=== PATIENT | female | born 1980 | race Two or more races ===

== ENCOUNTER 2024-09-30 12:24 | Emergency (ER) | payer OTHER, MEDICAID ==
[~2024-09-30] VITALS: Ht 170.2 cm; Wt 90.9 kg
--- NOTE | 2024-09-30 12:54 | ED.PDOC ---
Musculoskeletal HPI Comments 44y F who presents to the ED for chief complaint of lower extremity pain. Pt states she has been having LLE pain for the past 5 days. Pt denies any recent fall or injury. Pt states her pain starts by the posterior buttock region and radiates down her L leg. Pt states her pain is constant, exacerbated with movement no relieving factors. Pt has no associated symptoms and denies chest pain, shortness of breath, headache, dizziness, nausea, or vomiting. Pt states she has been taking Advil for her pain but is it has not been helping. Pt states she has MRI scheduled by PCP but states it has not been done yet. 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 Pt otherwise denies any other symptoms at this time. Chief Complaint: Lower Extremity Time Seen by MD: 12:49 Reviewed Notes: Nurses Notes, Medications, Allergies (Allergies to tramadol) Allergies: Coded Allergies: Tramadol (Verified Allergy, Unknown, 09/30/24) Home Meds Active Scripts Hydrocodone-Acetaminophen (Hydrocodone Bitartrate/AC 5-325 mg) 1 Tab Tab, 1 TAB PO Q8HP PRN for 7 Days, #21 TAB Prov:VALERIE MALAGON MD 09/30/24 Information Source: Patient Mode of Arrival: Ambulatory Brought in by: self Location: Left Extremity Location: Leg Timing: Days Prehospital treatment: None Severity: Moderate Able to Move Extremity: Yes Bear Weight: Limited Pain: Moderate Mechanism: Spontaneous Circumstances: Spontaneous Onset of Symptoms: Spontaneous Symptoms: Pain DVT Risk Factors: NONE Associated signs and symptoms: Leg pain Past Medical History PAST MEDICAL HISTORY: CHF, CVA, DM, HTN Surgical History: Denies all surgeries PROVISIONING ANALYST History: Unknown Family History Family History: Reviewed,noncontributory to illness Social History Smoker: Cigarettes Alcohol: Occasionally Drugs: Marijuana Lives In: Home Constitutional: denies: chills, diaphoresis, fatigue, fever, malaise, sweats, weakness, others EENTM: denies: blurred vision, double vision, ear bleeding, ear discharge, ear drainage, ear pain, ear ringing, eye pain, eye redness, hearing loss, mouth pain, mouth swelling, nasal discharge, nose bleeding, nose congestion, nose pain, photophobia, tearing, throat pain, throat swelling, voice changes, others Respiratory: denies: cough, hemoptysis, orthopnea, SOB at rest, shortness of breath, SOB with excertion, stridor, wheezing, others Cardiovascular: denies: chest pain, dizzy spells, diaphoresis, Dyspnea on exertion, edema, irregular heart beat, left arm pain, lightheadedness, palpi tations, PND, syncope, others Gastrointestinal: denies: abdomen distended, abdominal pain, blood streaked bowels, constipated, diarrhea, dysphagia, difficulty swallowing, hematemesis, melena, nausea, poor appetite, poor fluid intake, rectal bleeding, rectal pain, vomiting, others Genitourinary: denies: abnormal vagina bleeding, burning, dyspareunia, dysuria, flank pain, frequency, hematuria, incontinence, pain, , vagina discharge, urgency, others Neurological: denies: dizziness, fainting, headache, left sided numbness, left sided weakness, numbness, paresthesia, pre-existing deficit, right sided numbness, right sided weakness, seizure, speech problems, tingling, tremors, weakness, others Musculoskeletal: reports: joint pain; denies: back pain, gout, joint swelling, muscle pain, muscle stiffness, neck pain, others Integumetry: denies: bruises, change in color, change in hair/nails, dryness, laceration, lesions, lumps, rash, wounds, others Allergic/Immunocompromised: denies: Difficulty Healing, Frequent Infections, Hives, Itching, others Hematologic/Lymphatic: denies: anemia, blood clots, easy bleeding, easy bruising, swollen glands, others Endocrine: denies: excessive hunger, excessive sweating, excessive thirst, excessive urination, flushing, intolerance to cold, intolerance to heat, unexplained weight gain, unexplained weight loss, others Psychiatric: denies: anxiety, bipolar disorder, depression, hopeless, panic disorder, schizophrenia, sleepless, suicidal, others All Other Systems: Reviewed and Negative Physical Exam General Appearance: Mild Distress HEENT: Normal ENT Inspection, Pharynx Normal, TMs Normal Neck: Full Range of Motion, Non-Tender, Normal, Normal Inspection Respiratory: Chest Non-Tender, Lungs Clear, No Accessory Muscle Use, No Respiratory Distress, Normal Breath Sounds Cardiovascular: No Edema, No JVD, No Murmur, No Gallop, Normal Peripheral Pulses, Regular Rate/Rhythm Breast Exam: Deferred Gastrointestinal: No Organomegaly, Non Tender, No Pulsatile Mass, Normal Bowel Sounds, Soft Genitalia: Deferred Pelvic: Deferred Rectal: Deferred Extremities: No calf tenderness, Normal capillary refill, Normal inspection, Normal range of motion, Non-tender, No pedal edema Musculoskeletal : Location: Left Extremity Location: Back Apperance: Tenderness: Mild Neurologic: Alert, bulk picker II-XII nml as Tested, No Motor Deficits, Normal Affect, Normal Mood, No Sensory Deficits Cerebellar Function: Normal Reflexes: Normal Skin: Dry, Normal Color, Warm Lymphatic: No Adenopathy Was a procedure done? Was a procedure done?: No Differential Diagnosis EXT Differential Diagnosis: DJD, Strain, Arthritis Other Differential Diagnosis sciatica, lumbar radiculopathy X-Ray, Labs, Meds, VS Vital Signs Date Time Temp Pulse Resp B/P (MAP) Pulse Ox O2 Delivery O2 Flow Rate FiO2 09/30/24 13:23 97.9 116 22 149/86 (107) 100 09/30/24 13:20 97.0 100 15 149/86 (107) 100 97.0 Current Medications Medications (Trade) Dose Ordered Sig/Jeannette Route Start Time Stop Time Status Last Admin Acetaminophen/ Hydrocodone Bitart (Meredith 10/325MG Tab) 1 tab ONCE ONCE PO 09/30/24 12:45 09/30/24 12:46 DC 09/30/24 13:39 X-ray of the LS spine shows: I No sign of any abnormalities The patient was being discharged on Meredith The patient will return to the emergency department's the condition worsens The patient will follow up primary care doctor The patient was given prescription of Meredith Images Reviewed?: Images reviewed and evaluated by me Time of 1ST Reevaluation: 13:20 Reevaluation 1ST: Unchanged Patient Education/Counseling: Diagnosis, Treatment, Prognosis, Need For Follow Up Family Education/Counseling: No Family Present Departure 1 Departure Time of Disposition: 13:39 Impression: Primary Impression: Sciatica Qualified Codes: M54.32 - Sciatica, left side Disposition: HOME / SELF CARE / HOMELESS Condition: Fair e-Prescriptions Hydrocodone-Acetaminophen (Hydrocodone Bitartrate/AC 5-325 mg) 1 Tab Tab 1 TAB PO Q8HP PRN for 7 Days, #21 TAB Prov: VALERIE MALAGON MD 09/30/24 Discharged With: Self Critical Care Note Critical Care Time?: No Stability Stability form required: No Heart Score Heart Score: Heart Score Response (Comments) Value History N/A 0 EKG N/A 0 Age N/A 0 Risk Factors N/A 0 Troponin N/A 0 Total 0 I personally scribed for VALERIE MALAGON MD ([email or web address]) on 09/30/24 at 12:54. Electronically submitted by Angel Luis Pierce ([email or web address]). VALERIE MALAGON MD Sep 30, 2024 12:54
[2024-09-30 13:20] VITALS: TEMP 97
[2024-09-30 13:23] VITALS: BP 149/86; PULSE 116; RESP 22; O2SAT 100
--- NOTE | 2024-09-30 13:37 | DVH ---
XY LUMBAR SPINE 3 VIEW, HISTORY: pain COMPARISON: None TECHNICAL DATA: Frontal and lateral views were obtained of the lumbar spine . FINDINGS: There are 5 lumbar type vertebral bodies. Lumbar curvature is within normal limits. There is no spond ylolisthesis. Vertebral body heights are maintained. Disk heights are narrowed at L5-S1. The facet linda ints appear normal. The sacroiliac joints are symmetric. Paraspinal soft tissues are within normal li mits. IMPRESSION: No acute fracture or dislocation of the lumbar spine.
[2024-09-30] MEDS: HYDROcodone-ACET 10/325MG TAB PO ONE (13:39)
[2024-09-30] MEDS ORDERED: HYDR-4902 PO (13:43)
[2024-09-30] MEDS: HYDROcodone-ACET 10/325MG TAB ONE (13:48)
== END 2024-09-30 13:49 | disposition home or self-care (01) ==
LOC: ER 12:24
DX: M54.32 Sciatica, left side (principal); F17.210 Nicotine dependence, cigarettes, uncomplicated; F12.90 Cannabis use, unspecified, uncomplicated; I11.0 Hypertensive heart disease with heart failure; I50.89 Other heart failure; E11.9 Type 2 diabetes mellitus without complications; Z88.8 Allergy status to other drugs, medicaments and biological substances; Z86.73 Personal history of transient ischemic attack (TIA), and cerebral infarction without residual deficits
CPT/HCPCS: 72100